=== PATIENT | male | born 1970 | race Caucasian/White ===

== ENCOUNTER 2016-12-14 18:29 | Emergency (ER) | payer BC ==
[2016-12-14] MEDS ORDERED: oxyCODONE/Acetamin 5/325 MG* TAB PO ONE ×2 (19:29→21:42)
[2016-12-14] MEDS ORDERED: Morphine INJ* 4 MG/ML 1 ML CARPUJECT IV ONE (19:51)
--- NOTE | 2016-12-14 19:59 | RAD ---
INDICATION: Dr. Hanna to the right upper extremity COMPARISON: None. TECHNIQUE: 3 views of the right wrist and 2 views of the right forearm were obtained. REPORT: Lucencies overlying the right forearm, especially at the palmar distal right forearm are consistent with soft tissue lacerations. The visualized bones are properly aligned and well corticated. The joint spaces are normal.There is no fracture, dislocation or other focal osseous abnormality. IMPRESSION: Radiographic images of the forearm are consistent with soft tissue laceration without underlying bony fracture or deformity. If the patient's symptoms persist, follow-up imaging is recommended.
--- NOTE | 2016-12-14 20:21 | ED ---
Bite Injury/Animal - HPI Summary HPI Summary: 46M presents with dog bites. His two pit bulls were getting in a fight and he went to break them up and he got them and the one dog turned on his and bite his right hand and left elbow. The area is actively bleeding. pain is 10/10. has numbness in index finger. heard a snap. believes could be tooth in one wound. has full ROM of arms. did not take anything for pain. tetanus is up to date within 5 years. dog is up to date on rabies. did kill the dog afterwards. - History of Current Complaint Chief Complaint: EDAnimalBite Stated Complaint: DOG BITE - Allergies/Home Medications Allergies/Adverse Reactions: Allergies Allergy/AdvReac Type Severity Reaction Status Date / Time No Known Allergies Allergy Verified 12/14/16 20:00 PMH/Surg Hx/FS Hx/Imm Hx Endocrine/Hematology History: Denies: Hx Anticoagulant Therapy Respiratory History: Denies: Hx Asthma Infectious Disease History: Yes Infectious Disease History: Denies: Traveled Outside the [place] in Last 30 Days - Family History Known Family History: Positive: Cardiac Disease - Social History Alcohol Use: Occasionally Substance Use Type: Reports: None Smoking Status (MU): Current Every Day Smoker Review of Systems Negative: Fever Negative: Chest Pain Negative: Shortness Of Breath Positive: Other - lacerations right and left arms All Other Systems Reviewed And Are Negative: Yes Physical Exam Triage Information Reviewed: Yes Vital Signs On Initial Exam: Initial Vitals Resp 14 12/14/16 19:58 Vital Signs Reviewed: Yes Appearance: Positive: Pain Distress Skin: Positive: Warm, Dry, Other - 4cm right arm, 4 and 1/2cm right arm, 1cm right arm, 3cm left upper arm, 1cm elbow left, 1cm upper arm left, 2cm by 2cm laceration on radial aspect of right arm, multiple abrasion to hands Head/Face: Positive: Normal Head/Face Inspection Eyes: Positive: Normal, EOMI, LETICIA, Conjunctiva Clear ENT: Positive: Normal ENT inspection, Pharynx normal, TMs normal Respiratory/Lung Sounds: Positive: Clear to Auscultation, Breath Sounds Present Cardiovascular: Positive: Normal, RRR Musculoskeletal: Positive: Strength/ROM Intact - left and right arm with pain, Other - good pulses, capillary refill<2 secs Procedures - Laceration/Wound Repair 1 Location: Other - right arm Description: Irregular Anesthesia: Local, 1.0%, Epi Length, Depth and Shape: 4cm by 2 cm right arm, 4 and 1/2cm by 2cm right arm, 1cm by 1/4cm right arm Betadine Prep?: Yes Irrigated w/ Saline (ccs): 2,000 Laceration/Wound Explored: no foreign body removed Closure: Single Layer Suture Type: Prolene - 4-0 Number of Sutures: 14 - 7 in one with two vertical mattress sutures, 6 other with 2 vertical mattress, 1 other lac Layer Closure?: No Sterile Dressing Applied?: Yes - placed gauze and applied traci Diagnostics - Vital Signs Vital Signs Resp 12/14/16 19:58 14 - Laboratory Lab Statement: Any lab studies that have been ordered have been reviewed, and results considered in the medical decision making process. Bite Injury Course/Dx - Course Course Of Treatment: 46M presents with dog bites. His two pit bulls were getting in a fight and he went to break them up and he got them and the one dog turned on his and bite his right hand and left elbow. The area is actively bleeding. pain is 10/10. has numbness in index finger. heard a snap. believes could be tooth in one wound. has full ROM of arms. did not take anything for pain. tetanus is up to date within 5 years. dog is up to date on rabies. 18 sutures total placed after extensive irrigation. 1 laceration left open as tooth seen on xray but unable to locate tooth in wound and used u/s with dr colon help and unable to locate tooth. will have follow up with ortho for this. 4cm right forearm arm 6 sutures, 4 and 1/2cm right arm 7 sutures, 1cm right arm 1 suture, 3cm left upper arm 3 sutures, 1cm elbow left, 1cm upper arm left placed 1 suture. placed on augmentin. warned if signs of infection to return for. patient understands and agrees with plan. - Diagnoses Differential Diagnosis/HQI/PQRI: Positive: Crush Injury, Laceration, Puncture Provider Diagnosis: Dog bite, Multiple lacerations Discharge - Discharge Plan Condition: Good Disposition: HOME Prescriptions: Amoxicillin/Clavulanate TAB* [Augmentin TAB 875*] 875 mg PO BID #13 tab oxyCODONE/Acetamin 5/325 MG* [Percocet 5/325 TAB*] 1 tab PO Q6H PRN #20 tab MDD 4 PRN Reason: Pain Patient Education Materials: Care For Your Stitches (ED) Referrals: Non Staff,Doctor [Primary Care Provider] - Jackie Arteaga MD [Medical Doctor] - Additional Instructions: Wash area with soap and water once a day Place Neosporin on area Take augmentin twice a day for 7 days Return to ED to have sutures removed in 10-14 days Follow up with ortho Take ibuprofen every 6 hours and use narcotic for break through pain Place ice on area Return to ED if develop any sign of infection such as spreading redness, pus, or fever, or any new or worsening symptoms
[2016-12-14] MEDS ORDERED: Amoxicillin/Clavulanate TAB* 875 MG PO ONE (20:22)
[2016-12-14] MEDS ORDERED: Lidocaine 2% W/EPI 1:100,000* 20 ML MDV INJ ONE (20:38)
[2016-12-14] MEDS ORDERED: Lidocaine 2% EPI 1:200000 MPF* 20 ML VIAL ONE (20:40)
[2016-12-14 22:11] VITALS: BP 127/91
== END 2016-12-14 22:30 | disposition home or self-care (01) ==
LOC: ED 18:29
DX: S41.151A Open bite of right upper arm, initial encounter (principal); W54.0XXA Bitten by dog, initial encounter; Y93.9 Activity, unspecified; Y92.9 Unspecified place or not applicable
CPT/HCPCS: 12004; 96374; 96375; 99284; A9270-GY; J2270